=== PATIENT | female | born 1965 | race Caucasian/White ===

== ENCOUNTER 2016-10-05 09:05 | Outpatient (CLI) | payer BC ==
[2016-10-05 09:24] LABS: Hematocrit 42.1 % (30.3-42.9); Hemoglobin 14.3 gm/dl (10.1-14.3); Mean Corpuscular HGB Conc 34 % (30-34); Mean Corpuscular Hemoglobin 30 pg (28-32); Mean Corpuscular Volume 88 fl (79-97); Platelet Count 283 K/mm3 (140-440); Red Blood Count 4.81 M/mm3 (3.65-5.03); Red Cell Distribution Width 13.2 % (13.2-15.2); White Blood Count 5.1 K/mm3 (4.5-11.0)
[2016-10-05 09:46] LABS: Alanine Aminotransferase 30 units/L (7-56); Albumin 4.3 g/dL (3.9-5); Albumin/Globulin Ratio 1.4 %; Alkaline Phosphatase 39 units/L (35-129); Anion Gap 17 mmol/L; BUN/Creatinine Ratio 25.71; Blood Urea Nitrogen 18 mg/dL (7-17); Calcium 8.6 mg/dL (8.4-10.2); Carbon Dioxide 23 mmol/L (22-30); Chloride 103.7 mmol/L (98-107); Cholesterol 258 mg/dL (50-199); Glucose 99 mg/dL (65-100); HDL Cholesterol 44 mg/dL (40-59); LDL Cholesterol,Direct 185 mg/dL (50-130); Potassium 4.4 mmol/L (3.6-5.0); Sodium 139 mmol/L (137-145); Total Protein 7.3 g/dL (6.3-8.2); Triglycerides 149 mg/dL (2-149)
== END 2016-10-05 09:06 | disposition home or self-care (01) ==
LOC: LAB 09:05
PROVIDERS: ATTEND Internal Medicine
DX: E78.4 Other hyperlipidemia (principal); Z79.899 Other long term (current) drug therapy
CPT/HCPCS: 36415; 80053; 80061; 84443; 85027

== ENCOUNTER 2017-08-09 14:01 | Outpatient (CLI) | payer BC ==
--- NOTE | 2017-08-09 15:03 | XRay Report ---
RIGHT RIBS, 3 VIEWS: History: pain. Routine views of the rib cage demonstrate normal mineralization with no significant contour abnormalities, fractures or destructive lesions. PA view of the chest demonstrates no underlying cardiopulmonary abnormalities, fluid or pneumothorax. IMPRESSION: Unremarkable right rib series.
== END 2017-08-09 14:02 | disposition home or self-care (01) ==
LOC: XRAY 14:01
PROVIDERS: ATTEND Internal Medicine
DX: S29.9XXA Unspecified injury of thorax, initial encounter (principal); X58.XXXA Exposure to other specified factors, initial encounter; Y93.89 Activity, other specified; Y92.89 Other specified places as the place of occurrence of the external cause; Y99.8 Other external cause status

== ENCOUNTER 2017-10-24 14:57 | Outpatient (CLI) | payer BC ==
--- NOTE | 2017-10-24 15:46 | Mammography Report ---
BILATERAL MAMMOGRAM: FINDINGS: The breast tissue is heterogeneously dense, which could obscure detection of small masses (approximately 50%-75% glandular). No mass, distortion, suspicious calcification, or skin change is seen. No significant change when compared to her prior exam in November 2015. CAD was not captured. IMPRESSION: Negative mammogram. There is no mammographic evidence of malignancy. RECOMMENDATION: Follow-up per ACS guidelines. BI-RADS CATEGORY: 1 = Negative ACR BI-RADS MAMMOGRAPHIC CODES: 0 = Needs additional imaging evaluation; 1 = Negative; 2 = Benign; 3 = Probably benign; 4 = Suspicious; 5 = Malignant; 6 = Known biopsy-proven malignancy COMMENT: 1. Dense breast tissue, i.e., adenosis, fibrocystic changes, etc., may obscure an underlying neoplasm. 2. Approximately 10% of cancers are not detected with mammography. 3. A negative mammography report should not delay biopsy if a clinically suspicious mass is present. COMMENT: Patient follow-up letters are generated in [employer].
== END 2017-10-24 14:58 | disposition home or self-care (01) ==
LOC: SPVWC 14:57
PROVIDERS: ATTEND Internal Medicine
DX: Z12.31 Encounter for screening mammogram for malignant neoplasm of breast (principal)
CPT/HCPCS: 77067

== ENCOUNTER 2018-05-29 06:20 | Outpatient (CLI) | payer BC ==
[2018-05-29 08:35] LABS: Basophils % (Auto) 0.5 % (0.0-1.8); Eosinophils # (Auto) 0.1 K/mm3 (0.0-0.4); Eosinophils % (Auto) 1.8 % (0.0-4.3); Hematocrit 43.9 % (30.3-42.9); Hemoglobin 14.9 gm/dl (10.1-14.3); Lymphocytes # (Auto) 2.2 K/mm3 (1.2-5.4); Mean Corpuscular HGB Conc 34 % (30-34); Mean Corpuscular Volume 89 fl (79-97); Monocytes # (Auto) 0.4 K/mm3 (0.0-0.8); Monocytes % (Auto) 6.4 % (0.0-7.3); Platelet Count 305 K/mm3 (140-440); Red Blood Count 4.91 M/mm3 (3.65-5.03); Red Cell Distribution Width 12.4 % (13.2-15.2)
[2018-05-29 08:59] LABS: Alanine Aminotransferase 22 units/L (7-56); Albumin 4.6 g/dL (3.9-5); BUN/Creatinine Ratio 28; Blood Urea Nitrogen 14 mg/dL (7-17); Calcium 9.4 mg/dL (8.4-10.2); Hemolysis Index 12; LDL Cholesterol,Direct 185 mg/dL (50-130)
--- NOTE | 2018-05-29 09:00 | XRay Report ---
LEFT SHOULDER, 3 views: History: Left shoulder pain. Routine views demonstrate normal bony and soft tissue structures with normal joint alignment of the shoulder. IMPRESSION: Normal study.
[2018-05-29 09:32] LABS: Chol/HDL Ratio 5.92 %; HDL Cholesterol 40 mg/dL (40-59)
== END 2018-05-29 06:21 | disposition home or self-care (01) ==
LOC: XRAY 06:20
PROVIDERS: ATTEND Internal Medicine
DX: M25.512 Pain in left shoulder (principal)
CPT/HCPCS: 36415; 80053; 80061; 84443; 85025

== ENCOUNTER 2018-06-18 19:20 | Emergency (ER) | payer BC, OTHER ==
[2018-06-18 19:35] VITALS: BP 154/85
--- NOTE | 2018-06-18 20:01 | Emergency Department Report ---
ED Back Pain/Injury HPI - General Chief Complaint: Back Pain/Injury Stated Complaint: LOWER BACK PAIN Time Seen by Provider: 06/18/18 19:58 Source: patient Limitations: No Limitations - History of Present Illness Initial Comments: Pt is a 52 yo female who presents to the ED with right, lower back pain that began today. 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 The patient states she was wearing a support belt. She states she believes she "pulled a muscle." She describes the pain as a throbbing and spasm. The patient denies any numbness, tingling, weakness. She is able to ambulate without any difficulty. Pt has not tried any medication to relieve the pain but states she does have ibuprofen 800 mg at home. Complaint: back pain -: This afternoon Place: work Radiation: none Severity scale (0 -10): 5 Quality: other (throbbing/spasms) Consistency: constant Improves With: none Worsens With: movement Context: while lifting Associated Symptoms: denies other symptoms - Related Data Previous Rx's Medication Instructions Recorded Last Taken Type Tizanidine HCl [Zanaflex] 4 mg PO QHS #10 capsule 06/18/18 Unknown Rx Allergies Allergy/AdvReac Type Severity Reaction Status Date / Time No Known Allergies Allergy Unverified 10/05/16 09:05 ED Review of Systems ROS: Stated complaint: LOWER BACK PAIN Other details as noted in HPI Comment: All other systems reviewed and negative Musculoskeletal: back pain (right, lower) ED Back Pain Physical Exam - Exam General: Vital signs noted. No distress. Alert and acting appropriately. Pt has mild TTP over the right lumbar paraspinal region, no midline spinal tenderness, no steps offs, no deformities, FROM, no neuro deficits Back/Abdomen: No Sacroiliac Tenderness, No Flank Tenderness, No Straight Leg Raise Pain Neuro: Yes Normal Sensation, Yes Normal DTR's, Yes Normal Gait, No Motor Weakness ED Course Vital Signs 06/18/18 19:34 Temperature 97.7 F Pulse Rate 77 Respiratory 16 Rate Blood Pressure 154/85 [Right] O2 Sat by Pulse 98 Oximetry ED Medical Decision Making - Medical Decision Making Pt has right, lumbar paraspinal discomfort. no midline tenderness, FROM, able to ambulate without difficulty. Will give pt prescription for zanaflex to take at night, advised pt not to drive on medication. Pt states she already has ibuprofen 800 mg at home. Advised pt to return to the ED if new or worsening sx or if sx not improving. Critical care attestation.: If time is entered above; I have spent that time in minutes in the direct care of this critically ill patient, excluding procedure time. ED Disposition Clinical Impression: Lumbar strain Qualifiers: Encounter type: initial encounter Qualified Code(s): S39.012A - Strain of muscle, fascia and tendon of lower back, initial encounter Disposition: TO HOME OR SELFCARE Is pt being admited?: No Does the pt Need Aspirin: No Condition: Stable Instructions: Muscle Strain (ED) Additional Instructions: Follow up with PCP in the next few days. Return to ED if new or worsening sx. Only take zanaflex at night as needed for muscle spasms and do not use medication while driving. Prescriptions: Tizanidine HCl [Zanaflex] 4 mg PO QHS #10 capsule Referrals: SONA ESPINOZA MD [Primary Care Provider] - 3-5 Days Time of Disposition: 20:21 Print Language: TAJIK
== END 2018-06-18 20:30 | disposition home or self-care (01) ==
LOC: ED 19:20
DX: S39.012A Strain of muscle, fascia and tendon of lower back, initial encounter (principal); X50.0XXA Overexertion from strenuous movement or load, initial encounter; Y93.89 Activity, other specified; Y92.69 Other specified industrial and construction area as the place of occurrence of the external cause; Y99.8 Other external cause status
CPT/HCPCS: 99282

== ENCOUNTER 2018-06-26 09:50 | Outpatient (CLI) | payer BC ==
--- NOTE | 2018-06-26 19:44 | Magnetic Resonance Report ---
PROCEDURE: MR UE JOINT LT WO CON HISTORY: SHOULDER, PAIN FINDINGS: MRI of the left shoulder was performed using axial T2*gradient echo, coronal fat-saturated T2, thompson l T1, coronal fat-saturated proton density, sagittal fat saturated proton density images. These images demonstrate a partial undersurface tear of the anterior leading edge of the supraspinatu s tendon insertion, sagittal image 13. No full-thickness rotator cuff tear is seen. The infraspinatus teres minor and subscapularis muscles and tendons appear intact. The glenoid labrum appears intact. The biceps tendon appears intact. There is a curved, type II acromion. There is no subacromial spur. IMPRESSION: Partial thickness tear anterior leading edge of supraspinatus tendon insertion. No full-thickness rot ator cuff tear is seen This document is electronically signed by Sathya Mabry MD., June 26 2018 07:42:03 PM ET
== END 2018-06-26 09:51 | disposition home or self-care (01) ==
LOC: MRI 09:50
PROVIDERS: ATTEND Orthopaedic Surgery Sports Medicine
DX: S46.812A Strain of other muscles, fascia and tendons at shoulder and upper arm level, left arm, initial encounter (principal); X58.XXXA Exposure to other specified factors, initial encounter; Y93.89 Activity, other specified; Y92.89 Other specified places as the place of occurrence of the external cause; Y99.8 Other external cause status

== ENCOUNTER 2018-11-28 14:55 | Emergency (ER) | payer OTHER ==
--- NOTE | 2018-11-28 15:10 | Emergency Department Report ---
Blank Doc - Documentation Documentation: This is a 53-year-old female that presents with lower back pain during work. Denies any injuries. This initial assessment/diagnostic orders/clinical plan/treatment(s) is/are subject to change based on patient's health status, clinical progression and re- assessment by fellow clinical providers in the ED. Further treatment and workup at subsequent clinical providers discretion. Patient/guardians urged not to elope from the ED as their condition may be serious if not clinically assessed and managed. Initial orders include: 1- Patient sent to [facility] for further evaluation and treatment 2- xray
[2018-11-28 15:11] VITALS: BP 141/73
--- NOTE | 2018-11-28 15:42 | XRay Report ---
LUMBOSACRAL SPINE, 2 VIEWS INDICATION: low back pain. COMPARISON: None. IMPRESSION: There is mild levocurvature of the lumbar spine estimated at 10 degrees with apex near t he L2-3 level. No significant discogenic DJD or facet arthropathy. No acute osseous or soft tissue abnormality. Signer Name: Rafiq Montoya Jr, MD Signed: 11/28/2018 3:38 PM Workstation Name: [id number]
[2018-11-28] MEDS ORDERED: DELTASONE PO ONE (17:00)
[2018-11-28] MEDS ORDERED: NORCO 5/325 PO ONE (17:00)
--- NOTE | 2018-11-28 17:17 | Emergency Department Report ---
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 During the episode she felt a pop sensation to her back and reports severe pain that radiated around her waistband. Wound was a front of her abdomen continues to linger and a burning, aching fashion. Worse with various range of motion. Reports no fever, chills, sweats. No dysuria, no hematuria MD Complaint: back pain, back injury Similar Symptoms Previously: No Place: home Radiation: none Severity: moderate Quality: aching Consistency: constant Improves With: none Worsens With: none Associated Symptoms: denies: confusion, weakness, chest pain, numbness, incontinence, fever/chills, constipation, headaches, abdominal pain, loss of appetite, rash, seizure, shortness of breath, syncope - Related Data Previous Rx's Medication Instructions Recorded Last Taken Type Tizanidine HCl [Zanaflex] 4 mg PO QHS #10 capsule 06/18/18 Unknown Rx Allergies Allergy/AdvReac Type Severity Reaction Status Date / Time No Known Allergies Allergy Verified 11/28/18 15:01 ED Review of Systems ROS: Stated complaint: HURT BACK FROM WORK Other details as noted in HPI Comment: All other systems reviewed and negative ED Past Medical Hx - Past Medical History Previous Medical History?: No - Surgical History Past Surgical History?: No - Social History Smoking Status: Never Smoker Substance Use Type: None - Medications Home Medications: Home Medications Medication Instructions Recorded Confirmed Last Taken Type Tizanidine HCl [Zanaflex] 4 mg PO QHS #10 capsule 06/18/18 Unknown Rx ED Physical Exam - General Limitations: No Limitations General appearance: alert, in no apparent distress - Head Head exam: Present: atraumatic, normocephalic - Eye Eye exam: Present: normal appearance - ENT ENT exam: Present: mucous membranes moist - Neck Neck exam: Present: normal inspection - Respiratory Respiratory exam: Present: normal lung sounds bilaterally. Absent: respiratory distress - Cardiovascular Cardiovascular Exam: Present: regular rate, normal rhythm. Absent: systolic murmur, diastolic murmur, rubs, gallop - GI/Abdominal GI/Abdominal exam: Present: soft, normal bowel sounds - Extremities Exam Extremities exam: Present: normal inspection - Back Exam Back exam: Present: normal inspection, muscle spasm, paraspinal tenderness, other (negative. There is spine.). Absent: tenderness, CVA tenderness (R), CVA tenderness (L), vertebral tenderness - Neurological Exam Neurological exam: Present: alert, oriented X3, CN II-XII intact - Psychiatric Psychiatric exam: Present: normal affect, normal mood - Skin Skin exam: Present: warm, dry, intact, normal color. Absent: rash ED Course Vital Signs 11/28/18 11/28/18 15:09 17:07 Temperature 97.9 F Pulse Rate 89 Respiratory 18 18 Rate Blood Pressure 141/73 O2 Sat by Pulse 99 Oximetry ED Medical Decision Making - Medical Decision Making Fifth 3-year-old female status post lumbar injury. The patient x-ray that reveals some arthropathy in the possibility of a discrimination. Positive follow with orthopedic provider for an MRI. There is no tenderness of any cord syndrome. She is not having any urinary retention findings Streck concern for such a issue Critical care attestation.: If time is entered above; I have spent that time in minutes in the direct care of this critically ill patient, excluding procedure time. ED Disposition Clinical Impression: Lumbago Disposition: DC-01 TO HOME OR SELFCARE Is pt being admited?: No Does the pt Need Aspirin: No Condition: Stable Instructions: Lumbar Radiculopathy (ED), Back Pain (ED), Low Back Strain (ED) Referrals: MEHDI BUTTERFIELD MD [Referring] - 3-5 Days (Please follow with her ortho pedic physician for further evaluation of a lumbar go)
== END 2018-11-28 17:36 | disposition home or self-care (01) ==
LOC: ED 14:55
DX: M54.5 Low back pain (principal)
CPT/HCPCS: 72100; 99283; J7512

== ENCOUNTER 2019-04-29 06:54 | Outpatient (CLI) | payer BC ==
[2019-04-29 07:21] LABS: Hematocrit 40.8 % (30.3-42.9); Hemoglobin 13.8 gm/dl (10.1-14.3); Mean Corpuscular HGB Conc 34 % (30-34); Mean Corpuscular Volume 88 fl (79-97); Platelet Count 233 K/mm3 (140-440); Red Blood Count 4.62 M/mm3 (3.65-5.03); Red Cell Distribution Width 12.7 % (13.2-15.2)
[2019-04-29 07:26] LABS: Bilirubin,Urine NEG (Negative); Blood,Urine NEG (Negative); Color,Urine Straw (Yellow); Protein,Urine <15 mg/dL mg/dL (Negative); Urobilinogen,Urine < 2.0 mg/dL (<2.0); WBC,Urine < 1.0 /HPF (0.0-6.0)
[2019-04-29 07:46] LABS: Alanine Aminotransferase 24 units/L (7-56); Albumin 4.3 g/dL (3.9-5); BUN/Creatinine Ratio 18; Blood Urea Nitrogen 9 mg/dL (7-17); Calcium 9.1 mg/dL (8.4-10.2); Chol/HDL Ratio 2.88 %; HDL Cholesterol 52 mg/dL (40-59); Hemolysis Index 8; LDL Cholesterol,Direct 100 mg/dL (50-130)
== END 2019-04-29 06:55 | disposition home or self-care (01) ==
LOC: LAB 06:54
PROVIDERS: ATTEND Internal Medicine
DX: E78.5 Hyperlipidemia, unspecified (principal)
CPT/HCPCS: 36415; 80053; 80061; 81001; 84443; 85027

== ENCOUNTER 2019-12-09 07:03 | Outpatient (CLI) | payer BC ==
[2019-12-09 07:33] LABS: Mean Corpuscular HGB Conc 36 % (30-34); Mean Corpuscular Volume 89 fl (79-97); Platelet Count 282 K/mm3 (140-440); Red Blood Count 4.59 M/mm3 (3.65-5.03); Red Cell Distribution Width 12.8 % (13.2-15.2)
[2019-12-09 07:36] LABS: Hematocrit 40.8 % (30.3-42.9); Hemoglobin 14.7 gm/dl (10.1-14.3)
[2019-12-09 07:37] LABS: Bilirubin,Urine NEG (Negative); Blood,Urine NEG (Negative); Color,Urine Yellow (Yellow); Mucus,Urine FEW /HPF; Protein,Urine <15 mg/dL mg/dL (Negative); WBC,Urine < 1.0 /HPF (0.0-6.0)
[2019-12-09 07:58] LABS: Alanine Aminotransferase 46 units/L (7-56); Albumin 4.8 g/dL (3.9-5); Blood Urea Nitrogen 9 mg/dL (7-17); Calcium 9.6 mg/dL (8.4-10.2); Chol/HDL Ratio 5.17 %; HDL Cholesterol 51 mg/dL (40-59); Hemolysis Index 4; LDL Cholesterol,Direct 202 mg/dL (50-130)
[2019-12-09 08:23] LABS: BUN/Creatinine Ratio 13
== END 2019-12-09 07:04 | disposition home or self-care (01) ==
LOC: LAB 07:03
PROVIDERS: ATTEND Internal Medicine
DX: E03.9 Hypothyroidism, unspecified (principal); E78.5 Hyperlipidemia, unspecified
CPT/HCPCS: 36415; 80053; 80061; 81001; 84443; 85027

== ENCOUNTER 2020-01-21 11:18 | Outpatient (CLI) | payer BC ==
--- NOTE | 2020-01-22 09:07 | Mammography Report ---
DIGITAL SCREENING MAMMOGRAM WITH CAD, 01/21/2020 INDICATION: Routine screening mammography. TECHNIQUE: Digital bilateral 2D mammography was obtained in the craniocaudal and mediolateral obliq ue projections. This examination was interpreted with the benefit of Computer-Aided Detection analysi s. COMPARISON: 10/24/2017 FINDINGS: Breast Density: The breasts are heterogeneously dense, which may obscure small masses. There is no evidence of dominant mass, suspicious calcifications or architectural distortion in the r ight breast. There has been interval development of grouped microcalcifications in the left breast re troareolar region, middle depth. Calcifications span a distance of approximately 3.4 cm and approxima tely 4.3 cm deep to the nipple. Calcifications will need to be further evaluated with magnification v iews. IMPRESSION: Interval development of grouped microcalcifications in the left retroareolar breast. Follow up recommendation: Left magnification views Category 0: Incomplete. Needs additional imaging evaluation and/or prior mammograms for comparison. A "normal" or negative report should not discourage follow up or biopsy of a clinically significant f inding. A written summary of these findings will be mailed to the patient. The patient will be entered into a mammography reporting system which will generate a reminder letter for the patient's next appointmen t at the appropriate interval. The [employer] recommends yearly mammograms starting at age 40 and continuing as l randee as a woman is in good health. Breast MRI is recommended for women with an approximate 20-25% or greater lifetime risk of breast cancer, including women with a strong family history of breast or ova mark cancer or who have been treated for Hodgkin's disease. Signer Name: Dang Clemons MD Signed: 01/22/2020 9:02 AM Workstation Name: [id number]
== END 2020-01-21 11:19 | disposition home or self-care (01) ==
LOC: SPVWC 11:18
PROVIDERS: ATTEND Internal Medicine
DX: Z12.31 Encounter for screening mammogram for malignant neoplasm of breast (principal); N64.89 Other specified disorders of breast
CPT/HCPCS: 77067

== ENCOUNTER 2020-03-02 13:53 | Outpatient (CLI) | payer BC ==
--- NOTE | 2020-03-02 15:20 | XRay Report ---
CHEST 2 VIEWS INDICATION: ACUTE BRONCHITIS. COMPARISON: None FINDINGS: Support devices: None. Heart: Within normal limits. Lungs/pleura: No acute air space or interstitial disease. No pneumothorax. Additional findings: None. IMPRESSION: No acute findings. Signer Name: Rafiq Montoya Jr, MD Signed: 03/02/2020 3:15 PM Workstation Name: [id number]
== END 2020-03-02 13:54 | disposition home or self-care (01) ==
LOC: SPVIMAG 13:53
DX: J20.9 Acute bronchitis, unspecified (principal)
CPT/HCPCS: 71046

== ENCOUNTER 2020-03-09 13:12 | Outpatient (CLI) | payer BC ==
--- NOTE | 2020-03-09 14:11 | Mammography Report ---
DIGITAL DIAGNOSTIC MAMMOGRAM WITH CAD CONVENTIONAL, 03/09/2020 CLINICAL INFORMATION / INDICATION: Family history of left bloody nipple discharge, Abnormal screening mammogram TECHNIQUE: Digital left mammographic imaging was performed. Magnification views were obtained. This examination was interpreted with the benefit of Computer-aided Detection analysis. COMPARISON: Screening mammography 01/21/2020 and 10/24/2017 FINDINGS: Breast Density: The breasts are extremely dense, which lowers the sensitivity of mammography. In the central left breast, mid depth, just medial to the midline plain, the broad area of new groupe d microcalcifications is again seen. On magnification views these have a pleomorphic type of appearan ce. On lateral projections some of the calcifications may suggest mild layering but this is not unifo rm and not clearly benign. IMPRESSION: Calcifications remain indeterminate Follow up recommendation: Based on the appearance of these calcifications in the history of bloody ni pple discharge, stereotactic guided biopsy is recommended. BI-RADS Category 4: Suspicious for Malignancy. A "normal" or negative report should not discourage follow up or biopsy of a clinically significant f inding. A written summary of these findings will be mailed to the patient. The patient will be entered into a mammography reporting system which will generate a reminder letter for the patient's next appointmen t at the appropriate interval. According to the [employer], yearly mammograms are recommended starting at age 40 and continuing as long as a woman is in good health. Breast MRI is recommended for women with an kelsey roximately 20-25% or greater lifetime risk of breast cancer, including women with a strong family his tory of breast or ovarian cancer and women who have been treated for Hodgkin's disease. Signer Name: You Jimenez MD Signed: 03/09/2020 2:06 PM Workstation Name: [id number]
== END 2020-03-09 13:13 | disposition home or self-care (01) ==
LOC: SPVWC 13:12
DX: R92.8 Other abnormal and inconclusive findings on diagnostic imaging of breast (principal); N64.82 Hypoplasia of breast

== ENCOUNTER 2020-03-31 12:38 | Outpatient (CLI) | payer BC ==
--- NOTE | 2020-03-31 14:32 | Mammography Report ---
LEFT DIAGNOSTIC MAMMOGRAM INDICATION: Left breast calcifications. COMPARISON: 03/09/2017, 01/21/2020. FINDINGS: Left breast CC and LM projection mammograms were obtained. These document a biopsy marker l ocated slightly superior (2 cm) to a few residual calcifications in the left slightly medial central breast. A moderate size hematoma is noted at the biopsy site. IMPRESSION: Left breast mammographic images documenting the biopsy marker slightly superior (2 cm) to a few resid ual calcifications at the site of recent stereotactic biopsy. A moderate size hematoma is noted at th e biopsy site. BI-RADS Category 4: Suspicious for Malignancy. Signer Name: Roberto Burgos MD Signed: 03/31/2020 2:28 PM Workstation Name: [id number]
--- NOTE | 2020-03-31 14:46 | Mammography Report ---
PERCUTANEOUS STEREOTACTIC-GUIDED LEFT BREAST BIOPSY WITH MARKER PLACEMENT HISTORY: Left breast calcifications. CONSENT: Technique, risks and alternatives were discussed with the patient and informed written conse nt obtained. PROCEDURE: The patient was placed in the prone position on the Siemens biopsy table. The calcifications within t he left slightly medial central breast were targeted mammographically. Bread Wrapper Operator and stereo pair images w ere acquired to generate the computer-derived coordinates for targeting. The skin overlying the chose n biopsy site were cleansed with Betadine. The skin and superficial soft tissues were anesthetized w ith a small amount of buffered 1% lidocaine. The deeper soft tissues were anesthetized with buffered 1% lidocaine with epinephrine. A small dermatotomy was created through which the Atec biopsy device was placed. Pre and post fire st ereo pair images were acquired to confirm appropriate needle trajectory. Using vacuum assistance, mul tiple core specimen samples were acquired. A post procedure specimen radiograph confirmed calcificati ons within core specimen samples. A biopsy marker was deposited at the biopsy site. Manual pressure was applied at the biopsy site to achieve hemostasis. The incision margins were appro ximated with Steri-Strips. Postprocedure care instructions were administered in both verbal and writt en forms. The patient voiced understanding and departed the [facility] in stable, satisfactory con dition. IMPRESSION Technically successful stereotactic biopsy of left slightly medial central breast calcifications. A m oderate size hematoma formed at the biopsy site. NOTE: The patient reports left bloody nipple discharge (present for 3-4 months). Should these biopsy results be found to be benign, an MRI may be considered given the presence of bloody nipple discharge . She states she has an appointment with Dr. Huerta on 04/13/2020. Signer Name: Roberto Burgos MD Signed: 03/31/2020 2:42 PM Workstation Name: [id number]
== END 2020-03-31 12:39 | disposition home or self-care (01) ==
LOC: SPVWC 12:38
PROVIDERS: ATTEND Surgery
DX: R92.1 Mammographic calcification found on diagnostic imaging of breast (principal); R92.8 Other abnormal and inconclusive findings on diagnostic imaging of breast; Z79.899 Other long term (current) drug therapy
CPT/HCPCS: 19081; 77065; 88305; A4648

== ENCOUNTER 2020-04-21 13:38 | Outpatient (CLI) | payer BC ==
--- NOTE | 2020-04-22 09:50 | Magnetic Resonance Report ---
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 TECHNIQUE: Axial T1 and T2-weighted fat sat images were obtained precontrast. Gadolinium-based contra st was injected intravenously and serial axial T1 weighted images with fat saturation were obtained. 3-D MIP projections, kinetic analysis, and subtraction imaging were utilized to evaluate. A dedicated 8-channel breast coil was used for image acquisition. COMPARISON: [Biopsy from 03/31/2020. Diagnostic mammogram from 03/09/2020. FINDINGS: BREAST DENSITY: Extremely dense. BACKGROUND ENHANCEMENT: Moderate background enhancement within both breasts. RIGHT BREAST: No dominant mass or suspicious area of enhancement in the right breast. LEFT BREAST: Suspicious none mass enhancement is seen throughout the upper inner quadrant of the left breast with expected postbiopsy changes. Suspicious non mass enhancement is also seen along the uppe r outer left breast at the middle and posterior depths. No dominant mass is identified. No suspiciou s enhancement is seen elsewhere in the left breast. AXILLAE: Superiorly along the left axilla is a prominent lymph node measuring 1 cm in short axis dime nsion on image 379 of series 6 with cortical thickening. No other significant adenopathy. ADDITIONAL FINDINGS: Limited imaging of the thorax and upper abdomen demonstrates no focal abnormalit y. IMPRESSION: 1. Extensive abnormal nonmass enhancement throughout the left breast is consistent with DCIS. 2. Indeterminate left axillary node as above. 3. No evidence of malignancy in the right breast. Follow up recommendation: Surgical consult BI-RADS Category 6: Known Biopsy-Proven Malignancy. Signer Name: Oscar Nazario MD Signed: 04/22/2020 9:46 AM Workstation Name: [id number]
== END 2020-04-21 13:39 | disposition home or self-care (01) ==
LOC: SPVIMAG 13:38
PROVIDERS: ATTEND Surgery
DX: C50.112 Malignant neoplasm of central portion of left female breast (principal)
CPT/HCPCS: A9577; C8908; 77049

== ENCOUNTER 2020-05-12 09:17 | Outpatient (CLI) | payer BC ==
--- NOTE | 2020-05-12 16:35 | Ultrasound Report ---
ULTRASOUND-GUIDED LEFT AXILLARY NODE BIOPSY INDICATION: Recent diagnosis left breast DCIS, indeterminate left axillary lymph node on MR COMPARISON: MR breast 04/21/2020 CONSENT: Procedure was discussed at length in advance with the patient. Possible risks and benefits w ere discussed including the possibility of bleeding. Postbiopsy care was discussed. Opportunity for q uestions was provided. Patient is not on anticoagulant therapy and reports no pertinent allergies. PROCEDURE: Timeout was performed. The single enlarged node with borderline cortical thickening but pr ominent fatty hilum seen on MR was targeted sonographically. Using aseptic technique and under local anesthesia, with real-time sonographic guidance, the area of interest was biopsied. Multiple specimen s were obtained with a 14-gauge Bard biopsy device and sent to pathology for analysis. A metallic cli p was placed at the end of the procedure. Site was secured and the patient was sent for post biopsy m ammogram. Patient tolerated the procedure well and left the department in good condition. IMPRESSION: Successful ultrasound-guided left axillary node biopsy Signer Name: You Jimenez MD Signed: 05/12/2020 4:31 PM Workstation Name: [id number]
== END 2020-05-12 09:18 | disposition home or self-care (01) ==
LOC: SPVWC 09:17
PROVIDERS: ATTEND Surgery
DX: I89.8 Other specified noninfective disorders of lymphatic vessels and lymph nodes (principal); Z79.899 Other long term (current) drug therapy; C50.212 Malignant neoplasm of upper-inner quadrant of left female breast
CPT/HCPCS: 38505; 76942; 88305; 88342

== ENCOUNTER 2020-06-16 09:14 | Day surgery (SDC) | payer BC ==
[2020-06-15 10:48] LABS: Basophils % (Auto) 0.3 % (0.0-1.8); Eosinophils # (Auto) 0.1 K/mm3 (0.0-0.4); Eosinophils % (Auto) 0.8 % (0.0-4.3); Hematocrit 41.5 % (30.3-42.9); Hemoglobin 14.6 gm/dl (10.1-14.3); Lymphocytes % (Auto) 32.4 % (13.4-35.0); Mean Corpuscular HGB Conc 35 % (30-34); Mean Corpuscular Volume 88 fl (79-97); Monocytes # (Auto) 0.3 K/mm3 (0.0-0.8); Monocytes % (Auto) 5.3 % (0.0-7.3); Platelet Count 243 K/mm3 (140-440); Red Blood Count 4.72 M/mm3 (3.65-5.03); Red Cell Distribution Width 12.4 % (13.2-15.2)
[2020-06-15 11:02] LABS: Alanine Aminotransferase 30 units/L (7-56); Albumin 4.7 g/dL (3.9-5); Blood Urea Nitrogen 10 mg/dL (7-17); Calcium 9.2 mg/dL (8.4-10.2); Hemolysis Index 5
[2020-06-15 11:06] LABS: BUN/Creatinine Ratio 17
[~2020-06-16 09:14] MED LIST: ceFAZolin/Water 2 GM/20 ML 2 GM/20 ML SYRINGE IV NR
[2020-06-16] MEDS ORDERED: HYDROmorphone 1 MG/1 ML INJ IV PRN (09:20)
[2020-06-16] MEDS ORDERED: ONDANSETRON 4 MG/2 ML INJ IV PRN (09:20)
[2020-06-16] MEDS ORDERED: ACETAMINOPHEN 500 MG TAB PO SCH (09:21)
--- NOTE | 2020-06-16 09:54 | Anesthesia Day of Surgery ---
Anesthesia Day of Surgery - Day of Surgery Patient Examined: Yes Patient H&P Reviewed: Yes Patient is NPO: Yes
--- NOTE | 2020-06-16 09:54 | Anesthesia Consultation ---
Anesthesia Consult and Med Hx Date of service: 06/16/20 - Airway Anesthetic Teeth Evaluation: Good ROM Head & Neck: Adequate Mental/Hyoid Distance: Adequate Mallampati Class: Class II Intubation Access Assessment: Probably Good - Pre-Operative Health Status ASA Pre-Surgery Classification: ASA2 Proposed Anesthetic Plan: General - Pulmonary Hx Smoking: No Hx Respiratory Symptoms: No - Cardiovascular System Hx Hypertension: No Hx Heart Attack/AMI: No - Central Nervous System CVA: No - Endocrine Hx Renal Disease: No Hx Liver Disease: No Hx Insulin Dependent Diabetes: No Hx Non-Insulin Dependent Diabetes: No Hx Hypothyroidism: Yes - Other Systems Hx Cancer: Yes (breast ca) - Additional Comments Anesthesia Medical History Comments: No prior GA. No FHx anesthetic complications.
[2020-06-16] MEDS ORDERED: MIDAZOLAM 2 MG/2 ML INJ IV NR (10:00)
[2020-06-16] MEDS ORDERED: SCOPOLAMINE TRANSDERMAL PATCH 72 HR TD NR (10:00)
[2020-06-16] MEDS: LACTATED RINGERS 1,000 ML IV SCH ×2 (10:20→14:10)
[2020-06-16] MEDS ORDERED: HYDROmorphone 1 MG/1 ML INJ ONE (10:55)
[2020-06-16] MEDS ORDERED: LIDOCAINE MPF (2%) 20 MG/1 ML VIAL 5 ML ONE (10:55)
[2020-06-16] MEDS ORDERED: propofoL 200 MG/20 ML VIAL IV ONE (10:55)
[2020-06-16] MEDS ORDERED: BUPIVACAINE-EPINEPHRINE/PF 0.5%-1:200,000 (30 ML) VIAL INFILTRATI ONE ×3 (11:21→11:50)
[2020-06-16] MEDS ORDERED: dexAMETHasone 20 MG/5 ML VIAL ONE (11:30)
[2020-06-16] MEDS ORDERED: GLYCOPYRROLATE 0.4 MG/2 ML INJ ONE (11:30)
[2020-06-16] MEDS ORDERED: ONDANSETRON 4 MG/2 ML INJ ONE (11:30)
[2020-06-16] MEDS ORDERED: WATER FOR IRRIG STERILE 1,500 ML BOTTLE IR ONE (11:50)
[2020-06-16] MEDS ORDERED: KETOROLAC 30 MG/1 ML INJ ONE (12:29)
--- NOTE | 2020-06-16 13:12 | Operative Report ---
PREOPERATIVE DIAGNOSIS: Personal history of left breast cancer. POSTOPERATIVE DIAGNOSIS: Personal history of left breast cancer. PROCEDURE: Delay of left TRAM with ligation of the deep inferior epigastric blood vessels, left. SURGEON: Dr. Abdon Delgado. SEISMOGRAPH HELPER: None. ANESTHESIA: General LMA. DRAINS: None. COMPLICATIONS: None. SPECIMENS: None. ESTIMATED BLOOD LOSS: Less than 10 mL. COMPLICATIONS: None. INDICATIONS FOR PROCEDURE: The patient is a 54-year-old woman who has a known history of left-sided DCIS and is to undergo a left mastectomy by Dr. Huerta. The patient has opted to proceed with immediate breast reconstruction at the time of her upcoming mastectomy with a TRAM autologous reconstruction. In order to augment the circulation to the flap to procure as much tissue as safely possible, we discussed to delay procedure prior to her upcoming reconstruction to augment the blood supply. The nature and technical aspects of the procedure, typical recovery period and potential risks involved were discussed fully including but not limited to postop infection, bleeding, pronounced scar, hematoma, seroma formation, areas of paresthesias or numbness, delayed healing, failure to achieve anticipated goals, need for revision or future surgery. She was marked in the holding area in upright position. We again discussed the anticipated position of the postsurgical scar. PROCEDURE: The patient was brought to the operating room and placed on the operating table. She was induced with general laryngeal mask anesthesia prior to which IV antibiotics and pneumatic compression boots for DVT prophylaxis were utilized. DESCRIPTION OF PROCEDURE: The trunk was prepped and the patient was draped in the usual sterile fashion. Attention was first turned towards placement of local anesthetic comprised of 0.5% Marcaine with epinephrine solution into the operative field. An incision was made in the left groin spanning approximately 5 cm with a 15 blade scalpel and then carried through the subcutaneous tissue plane superficial Seth's fascia until the deep fascia was identified overlying the rectus muscle. Small incision was linearly made along the lateral border of the rectus muscle on the left side. The rectus muscle was reflected and dissection was carried out and a handheld Doppler was utilized to help identify the deep inferior epigastric blood vessel. Note that in the course of the dissection, the superficial epigastric blood vessels were cauterized. The deep inferior left epigastric artery and veins were then identified and doubly ligated with a 3-0 silk tie. Next, closure was then facilitated with reapproximation of the fascia with interrupted 2-0 Vicryl sutures. Seth's was reapproximated with interrupted 2-0 Vicryl suture and then the skin was reapproximated after irrigating the wound with copious amounts of saline solution with 3-0 Monocryl at the level of the deep dermis and then a running subcuticular 3-0 Monocryl stitch and then Dermabond skin glue. The patient tolerated the procedure well and was extubated and transferred to the recovery area in stable condition. JOB# [id number] /IBAN
[2020-06-16 15:19] VITALS: BP 121/62
--- NOTE | 2020-06-16 16:54 | Post Anesthesia Evaluation ---
- Post Anesthesia Evaluation Patient Participated: Yes Airway Patent: Yes Stable Respiratory Function: Yes Nausea/Vomiting: No Temp > 96.8F: Yes Pain Manageable: Yes Adequeate Hydration: Yes Anesthesia Complications: No
== END 2020-06-16 09:15 | disposition home or self-care (01) ==
LOC: OR 09:14
PROVIDERS: ATTEND Plastic Surgery
DX: Z51.89 Encounter for other specified aftercare (principal); G43.909 Migraine, unspecified, not intractable, without status migrainosus; E78.00 Pure hypercholesterolemia, unspecified; E03.9 Hypothyroidism, unspecified; Z85.3 Personal history of malignant neoplasm of breast; Z20.828 Contact with and (suspected) exposure to other viral communicable diseases; Z88.8 Allergy status to other drugs, medicaments and biological substances
CPT/HCPCS: 15600; 36415; 80053; 84703; 85025; J0690; J1100; J1170; J1885; J2250; J2405; J2704; J7120; U0003

== ENCOUNTER 2020-06-30 06:12 | Inpatient (IN) | payer BC ==
[~2020-06-30 06:12] MED LIST changes: +ACETAMINOPHEN 500 MG TAB PO SCH; +CELECOXIB 200 MG CAP PO NR; +GABAPENTIN 300 MG CAP PO NR; +LACTATED RINGERS 1,000 ML IV SCH; +MIDAZOLAM 2 MG/2 ML INJ IV NR; +SCOPOLAMINE TRANSDERMAL PATCH 72 HR TD NR; +fentaNYL 100 MCG/2 ML INJ IV PRN
[2020-06-30] MEDS ORDERED: BACTERIOSTATIC SODIUM CHLORIDE 0.9% 30 ML VIAL INFILTRATI ONE (06:55)
--- NOTE | 2020-06-30 06:57 | Anesthesia Consultation ---
Anesthesia Consult and Med Hx Date of service: 06/30/20 - Airway Anesthetic Teeth Evaluation: Good ROM Head & Neck: Adequate Mental/Hyoid Distance: Adequate Mallampati Class: Class II Intubation Access Assessment: Good - Pulmonary Exam CTA: Yes - Cardiac Exam Cardiac Exam: RRR - Pre-Operative Health Status ASA Pre-Surgery Classification: ASA2 Proposed Anesthetic Plan: General - Pulmonary Hx Respiratory Symptoms: No - Central Nervous System CVA: No Hx Psychiatric Problems: No - Endocrine Hx Insulin Dependent Diabetes: No Hx Non-Insulin Dependent Diabetes: No Hx Hypothyroidism: Yes - Other Systems Hx Cancer: Yes Hx Obesity: Yes
--- NOTE | 2020-06-30 06:58 | Anesthesia Day of Surgery ---
Anesthesia Day of Surgery - Day of Surgery Patient Examined: Yes Patient H&P Reviewed: Yes Patient is NPO: Yes
[2020-06-30] MEDS ORDERED: BUPIVACAINE/PF (0.5%) 5 MG/1 ML 30 ML VIAL INFILTRATI ONE (07:13)
[2020-06-30] MEDS ORDERED: dexAMETHasone 20 MG/5 ML VIAL ONE (07:14)
[2020-06-30] MEDS ORDERED: LIDOCAINE (1%) 10 MG/1 ML VIAL 20 ML MDV ONE (07:14)
[2020-06-30] MEDS ORDERED: SODIUM CHLORIDE 0.9% 500 ML 500 ML ONE (07:14)
[2020-06-30] MEDS ORDERED: METHYLENE BLUE 50 MG/10 ML AMP ONE (08:05)
[2020-06-30] MEDS ORDERED: ceFAZolin 1 GM VIAL ONE ×2 (08:06→16:28)
[2020-06-30] MEDS ORDERED: BACITRACIN 50,000 UNIT VIAL ONE (08:06)
[2020-06-30] MEDS ORDERED: SODIUM CHLORIDE P/F VIAL 10 ML 10 ML ONE (08:06)
[2020-06-30] MEDS ORDERED: GENTAMICIN 40 MG/ML VIAL 2 ML ONE (08:07)
[2020-06-30] MEDS ORDERED: SODIUM CHLORIDE P/F VIAL 10 ML 20 ML ONE (08:07)
[2020-06-30] MEDS ORDERED: ONDANSETRON 4 MG/2 ML INJ IV PRN ×2 (08:28→11:06)
[2020-06-30] MEDS ORDERED: fentaNYL 100 MCG/2 ML INJ IV PRN (08:28)
[2020-06-30] MEDS ORDERED: SODIUM CHLORIDE 0.9% P/F 10 ML VIAL INFILTRATI ONE (09:01)
[2020-06-30] MEDS ORDERED: METHYLENE BLUE 50 MG/10 ML AMP IRRIGATION ONE (09:01)
[2020-06-30] MEDS ORDERED: HYDROmorphone 2 MG TAB PO PRN (11:06)
[2020-06-30] MEDS ORDERED: oxyCODONE /ACETAMINOPHEN 5-325MG TAB PO PRN (11:06)
[2020-06-30] MEDS ORDERED: METOCLOPRAMIDE 10 MG TAB PO PRN (11:06)
--- NOTE | 2020-06-30 11:06 | Operative Report ---
Operative Report Operative Report: Operative Report: Date of Service: June 30, 2020 Preoperative diagnosis: Left breast cancer of the upper outer/upper inner/central quadrant Postoperative diagnosis: Same Procedure: Left total mastectomy with sentinel lymph node biopsy Surgeon: Kamilla Huerta M.D. Launch Commander [employer]: Tang Kapadia M.D. Anesthesia: Gen. Findings: Left breast clip present within left total mastectomy; x3 sentinel lymph nodes identified and negative for malignancy on frozen section of pathology Complications: None Drains: per Plastic Surgery Estimated blood loss: Less than 50 cc Disposition: Plastic surgery proceeded with TRAM flap reconstruction Indications for operative procedure: This is a 54-year-old lady with newly diagnosed Stage 0 left breast cancer of the upper outer/upper inner/central quadrant, ER/[place] positive; [id number] ER/[place] positive. Recommendations were to proceed with a left total mastectomy given extensive disease seen on breast MRI and patient wanted to proceed with a left mastectomy with immediate TRAM flap reconstruction. Breast MRI findings of extensive disease throughout the upper inner and upper outer quadrant; patient also with spontaneous left bloody nipple discharge since August 2019. She understands to role of possible adjuvant XRT pending final pathology and medical oncology will obtain Oncotype DX for evaluation for adjuvant chemotherapy if invasive carcinoma identified. She wished to proceed with the above procedure. Procedure in detail: Anesthesia placed left chest wall block. The patient was taken to the operating room and was placed supine. Gen. anesthesia was administered. The left nipple was injected with radioisotope and 1 cc of methylene blue. Bilateral chest and axillas were prepped and draped in the normal sterile operative fashion. Timeout was performed. Typical mastectomy incision marking was made. Attention was taken towards the left breast. A gamma probe was inserted into the axilla to identify the sentinel lymph node location with uptake noted. A skin incision was made with a 10 blade knife and dissection taken down to the subcutaneous tissues. First began raising of the superior flap to the level of the clavicle superiorly and posteriorly to the pectoralis muscle. Followed by raising of the medial flap to the level of the sternum and posteriorly to the pectoralis muscle. Followed by raising of the lateral flap to the level of the latissimus dorsi muscle and taken down posteriorly. The gamma probe was inserted into the axilla, the axillary fascia was opened and 3 SLNS were identified that were dissected free and sent to pathology. All SLNs sent to pathology with findings negative for malignancy on frozen section; first SLN with prior biopsy site changes present as well. Then proceeded with raising of the inferior flap to the level of the inframammary fold taken posterior to the pectoralis muscle. The mastectomy/breast was removed from the pectoralis muscle without incident. The specimen was appropriately marked and sent to radiology with findings of breast clip present and sent to pathology. Hemostasis was obtained. The chest wall cavity was irrigated. She tolerated surgery very well and Plastic Surgeon then proceeded with immediate TRAM flap.
[2020-06-30] MEDS ORDERED: MORPHINE 2 MG/1 ML INJ IV PRN (11:10)
[2020-06-30] MEDS ORDERED: SODIUM CHLORIDE 0.9% IRR 1,500 ML BOTTLE IR ONE (11:52)
[2020-06-30] MEDS ORDERED: ceFAZolin 1 GM VIAL IV ONE (11:52)
[2020-06-30] MEDS ORDERED: BACITRACIN 50,000 UNIT VIAL IR ONE (11:52)
[2020-06-30] MEDS ORDERED: GENTAMICIN 40 MG/ML VIAL 2 ML IV ONE (11:52)
[2020-06-30] MEDS ORDERED: MIDAZOLAM 2 MG/2 ML INJ ONE (13:07)
[2020-06-30] MEDS ORDERED: fentaNYL 100 MCG/2 ML INJ ONE (13:07)
[2020-06-30] MEDS ORDERED: HYDROmorphone 1 MG/1 ML INJ ONE ×2 (13:07)
[2020-06-30] MEDS ORDERED: ePHEDrine SULFATE 50 MG/1 ML INJ ONE (13:08)
[2020-06-30] MEDS ORDERED: propofoL 200 MG/20 ML VIAL IV ONE (13:08)
[2020-06-30] MEDS ORDERED: NALOXONE 0.4 MG/1 ML INJ IV PRN (14:04)
[2020-06-30] MEDS ORDERED: MORPHINE/NS 30 MG-30 ML PCA INJ IV SCH (15:00)
[2020-06-30] MEDS ORDERED: PHENYLEPHRINE 10 MG/1 ML INJ SDV ONE (15:30)
[2020-06-30] MEDS ORDERED: PHENYLEPHRINE/NS 1,000 MCG/10 ML SYRINGE (OR USE) IV ONE ×2 (15:30→16:24)
[2020-06-30] MEDS ORDERED: SODIUM CHLORIDE 0.9% 100 ML ONE (15:31)
[2020-06-30] MEDS ORDERED: LACTATED RINGERS 2,000 ML ONE (15:31)
[2020-06-30] MEDS ORDERED: NEOSTIGMINE 10MG/10 ML INJ MDV ONE (15:44)
[2020-06-30] MEDS ORDERED: GLYCOPYRROLATE 0.4 MG/2 ML INJ ONE (15:44)
[2020-06-30] MEDS ORDERED: ONDANSETRON 4 MG/2 ML INJ ONE (15:44)
--- NOTE | 2020-06-30 16:26 | Operative Report ---
PREOPERATIVE DIAGNOSIS: Personal history of breast cancer. POSTOPERATIVE DIAGNOSIS: Personal history of breast cancer. PROCEDURE: Immediate left breast reconstruction with pedicle TRAM flap. SURGEON: Dr. Abdon Delgado. TAMALE MACHINE FEEDER: ____ Steffi. ANESTHESIA: General endotracheal tube anesthesia. DRAINS: ANDRE x 4. SPECIMENS: None. COMPLICATIONS: None. ESTIMATED BLOOD LOSS: 200 mL. INDICATIONS: The patient is a 54-year-old woman with known left-sided breast cancer, who presented today for a left mastectomy with sentinel node biopsy as performed by Dr. Kamilla Huerta. The patient was aware of the various reconstructive options for breast reconstruction and ultimately decided she wished to proceed with autologous only reconstruction efforts and decided to proceed with a TRAM flap. A delay procedure with ligation of the deep inferior epigastric blood vessels had been performed prior to today's surgery to augment the blood supply from the superior based pedicle. The nature of the surgery, technical aspects, typical recovery period and potential risks involved were discussed fully including but not limited to postop bleeding, infection, pronounced scar, hematoma or seroma formation, areas of paresthesias, numbness or pain, which may be permanent, partial or complete loss of the flap, delayed healing at both the donor or recipient sites, positioning of the umbilicus off the midline. The asymmetry (expected) local breast deformity, failure achieve anticipated goals, need for revision or future surgery. We discussed the possible need for blood transfusion following the procedure if deemed necessary. The patient had donated 1 unit of autologous blood prior to surgery. DESCRIPTION OF PROCEDURE: The patient had already been marked and was anesthetized and lying supine. Dr. Huerta had completed the mastectomy on the left side as well as sentinel node biopsy. Flaps were evaluated and deemed of adequate thickness and viability to proceed with the planned reconstructive efforts. Attention was first turned towards harvesting an ipsilateral TRAM flap from the left lower abdomen. The flap had been marked out and was incised in an elliptical manner with a 10 blade scalpel, also an incision was made circumferentially around the umbilicus. Dissection with Metzenbaum scissors was used apple core the umbilicus down to the deep fascia, taking care to reserve as much blood supply to this area as possible. The incision was taken down universally along the flap to the deep fascia with electrocautery. The flap was then elevated from each side and the medial and lateral perforators were identified and preserved. Intraoperative sterile Doppler was utilized to confirm adequate aquaculture farmer blood supply to the flap. An incision was then made creating a cuff of fascia medially and laterally along the anterior rectus fascia with a 15 blade scalpel. The muscle was then dissected free of the rectus sheath under direct vision with the Metzenbaum scissor. Lateral perforating blood vessels were clamped with medium Ligaclips. The deep inferior epigastric system had already been tied off. The inferior portion just superior to the pubic insertion of the left rectus muscle was then divided in its entirety. The flap was then harvested along with muscle in its entirety from the rectus sheath in a cephalad manner, taking care to preserve the pedicle. Flap was then freed to the costal margin on the ipsilateral side. Meticulous hemostasis was achieved all the while. Next, an incision was made in the medial inframammary fold portion of the left breast and the flap was tunneled through this and oriented appropriately. There was excellent blood supply to the flap with brisk bright red bleeding from all skin edges including even zone 4. The flap was truncated by the removal of zone 4 and a portion of the adjacent zone as well as portion of zone 3. The flap was shaped and deepithelialized appropriately and some of the deep subcutaneous tissue was pexy'd to the pectoralis fascia with interrupted 2-0 Vicryl superiorly and laterally to create a nice breast mound. Two 10-Togolese flat ANDRE drains were placed into the left breast pocket and exited through separate inferolateral stab incisions and sewn in place with 2-0 silk. FloSeal was placed into the cavity for hemostatic purposes. I was quite pleased with the blood supply to the flap after inset and final inset was then performed at the skin level. After truncated and the flap as well as some of the [place] chest skin flaps with 3-0 Monocryl at the level of the deep dermis in an interrupted fashion and then a running subcuticular 4-0 Monocryl suture. Next, attention was turned towards closure of the rectus sheath. This was performed in 2 layers with [id number] interrupted #1 Surgilon sutures and then 2 separate running 0 Prolene sutures. There was no undue tension on the fascia and it was deemed unnecessary to use any mesh for support. This did bring the umbilicus off center somewhat to the left side as typically is the case. Note that the anterior abdominal wall had been dissected to the costal border with electrocautery. Next, attention was turned towards closure of the abdomen with placement of the patient in a semi-seated position with knees flexed. Seth's fascia was then sewn down in a 3 point manner to the deep fascia with interrupted 2-0 Vicryl sutures. Interrupted 3-0 Monocryl sutures were placed at the level of deep dermis of the skin and then a running subcuticular 3-0 Monocryl stitch was placed at the level of the skin. There was no undue tension on the flaps, which had nice appropriate bleeding from the skin edges. Prior to definitive closure, two additional flat ANDRE #10 drains were placed into the abdomen exiting out of the hip areas on each side and sewn in place with 2-0 silk sutures. The umbilicus was delivered through a triangulating incision in the midline and sewn in place with a deep pexy suture at the 6 o'clock position and interrupted 3-0 Monocryl sutures at the deep dermis in addition. Half buried 3-0 nylon sutures were placed at the level of the skin. The umbilicus appeared healthy and viable at the termination of the case. All sites appeared appropriate and the procedure went smoothly. Specialist care was taken to make sure that with folding of the ipsilateral pedicle that this had maintained appropriate blood supply without kinking of the pedicle as it was and after tunneling it. The patient tolerated the procedure well and was extubated and transferred to the recovery area in stable condition. JOB# [id number] /IBAN
[2020-06-30] MEDS ORDERED: ROCURONIUM 50 MG/5 ML INJ IV ONE (16:30)
[2020-06-30] MEDS ORDERED: LIDOCAINE MPF (2%) 20 MG/1 ML VIAL 5 ML ONE (16:30)
[2020-06-30] MEDS: LACTATED RINGERS 1,000 ML IV SCH (19:12)
[2020-06-30] MEDS: ceFAZolin/NS 1 GM/50 ML 1 GM/50 ML BAG IV SCH (21:58)
[2020-06-30] MEDS: DOCUSATE SODIUM 100 MG CAP PO SCH (22:49)
[2020-07-01] MEDS: oxyCODONE /ACETAMINOPHEN 5-325MG TAB PO PRN ×3 (00:41→19:21)
[2020-07-01] MEDS: LACTATED RINGERS 1,000 ML IV SCH ×3 (05:11→21:58)
[2020-07-01] MEDS: ceFAZolin/NS 1 GM/50 ML 1 GM/50 ML BAG IV SCH ×2 (05:41→21:57)
[2020-07-01 06:27] LABS: Hematocrit 23.2 % (30.3-42.9); Hemoglobin 8.1 gm/dl (10.1-14.3)
[2020-07-01] MEDS: DOCUSATE SODIUM 100 MG CAP PO SCH ×2 (07:40→21:58)
--- NOTE | 2020-07-01 08:16 | Mammography Report ---
BREAST SPECIMEN RADIOGRAPH HISTORY: Left lumpectomy for DCIS FINDINGS/IMPRESSION: The submitted radiograph or radiographs demonstrate(s) the presence of a biopsy marker with surroundi ng multiple calcifications. No localization wire is present. Signer Name: Dang Clemons MD Signed: 07/01/2020 8:11 AM Workstation Name: [id number]
--- NOTE | 2020-07-01 11:33 | Post Anesthesia Evaluation ---
- Post Anesthesia Evaluation Patient Participated: Yes Airway Patent: Yes Stable Respiratory Function: Yes Nausea/Vomiting: No Temp > 96.8F: Yes Pain Manageable: Yes Adequeate Hydration: Yes Anesthesia Complications: No Block Receding Appropriately: Yes Patient on Ventilator: No
--- NOTE | 2020-07-01 12:57 | Progress Note ---
Assessment and Plan This is a 54-year-old lady with newly diagnosed Stage 0 left breast cancer, postoperative day 1 left total mastectomy with SLNB followed by immediate TRAM flap reconstruction. 1. Physical exam left chest and abdomen incisions healing well with no signs of infection. No hematoma. ANDRE drains to bulb suction. 2. Up and out of bed to hallway today. 3. Will repeat H&H this evening and if stable will start patient on Lovenox. 4. ANDRE drain education prior to discharge home. 5. Continue with pain management; AUTO BODY ESTIMATOR d/c overnight. Subjective Date of service: 07/01/20 Principal diagnosis: Left breast cancer Interval history: This is a 54-year-old lady with newly diagnosed Stage 0 left breast cancer, postoperative day 1 left total mastectomy with SLNB followed by immediate TRAM flap reconstruction. Objective - Constitutional Vitals: Vital Signs - 12hr 07/01/20 07/01/20 07/01/20 04:30 05:42 06:00 Temperature 98.8 F Pulse Rate 101 H 88 Respiratory 18 20 Rate Blood Pressure Blood Pressure 91/49 101/55 [Right] O2 Sat by Pulse 95 Oximetry 07/01/20 08:55 Temperature 99.5 F Pulse Rate 92 H Respiratory 18 Rate Blood Pressure 90/52 Blood Pressure [Right] O2 Sat by Pulse 97 Oximetry General appearance: Present: no acute distress - EENT Eyes: PERRL, EOM intact ENT: hearing intact, clear oral mucosa, dentition normal Ears: bilateral: normal - Neck Neck: supple, normal ROM - Respiratory Respiratory effort: normal - Breasts Breasts: other (left TRAM reconstruction with skin well perfused; typical postoperative echhymosis; no hematoma; abdomen-incision c/d/i; ANDRE drains in place) - Cardiovascular Rhythm: regular Extremities: no ischemia, pulses intact, pulses symmetrical, No edema, normal temperature, normal color, Full ROM - Gastrointestinal General gastrointestinal: Present: other (incision healing well; c/d/i) - Genitourinary Female genitourinary: deferred - Integumentary Integumentary: clear, warm, dry - Musculoskeletal Musculoskeletal: strength equal bilaterally - Neurologic Neurologic: CNII-XII intact, moves all extremities - Psychiatric Psychiatric: appropriate mood/affect, intact judgment & insight, memory intact, cooperative - Labs CBC & Chem 7: 07/01/20 05:52 Labs: Abnormal lab results 07/01/20 Range/Units 05:52 Hgb 8.1 L (10.1-14.3) gm/dl Hct 23.2 L (30.3-42.9) % Medications & Allergies - Medications Allergies/Adverse Reactions: Allergies TEGADERM Adverse Reaction (Uncoded 06/23/20 16:41) "PULLS MY SKIN OFF" Home Medications: Home Medications Medication Instructions Recorded Confirmed Last Taken Type AtorvaSTATin [Lipitor] 40 mg PO QHS 06/14/20 06/23/20 06/29/20 History Levothyroxine [Synthroid] 25 mcg PO QAM 06/14/20 06/23/20 06/29/20 History Acetaminophen [Tylenol] 2 tab PO Q4H PRN 06/23/20 06/30/20 06/29/20 20:00 History Active Medications: Generic Name Dose Route Start Last Admin Trade Name Freq PRN Reason Stop Dose Admin Acetaminophen 650 mg 06/30/20 11:06 Acetaminophen 325 Mg Tab PO Q6H PRN Pain MILD(1-3)/Fever >100.5/SMITH Diphenhydramine HCl 25 mg 06/30/20 11:06 Diphenhydramine 25 Mg Cap PO Q8H PRN Itching Docusate Sodium 100 mg 06/30/20 22:00 07/01/20 07:40 Docusate Sodium 100 Mg Cap PO 100 mg BID JESSI Administration Hydromorphone HCl 2 mg 06/30/20 11:06 07/01/20 07:45 Hydromorphone 2 Mg Tab PO 2 mg Q6H PRN Administration Pain , Severe (7-10) Lactated Ringer's 1,000 mls @ 125 mls/hr 06/30/20 11:15 07/01/20 11:08 Lactated Ringers IV 125 mls/hr DIRECT JESSI Administration Cefazolin Sodium 1 gm in 50 mls @ 100 mls/hr 06/30/20 14:00 07/01/20 05:41 Ancef/Ns 1 Gm/50 Ml IV 100 mls/hr Q8H JESSI Administration Protocol Metoclopramide HCl 10 mg 06/30/20 11:06 Metoclopramide 10 Mg Tab PO Q6H PRN Nausea And Vomiting Morphine Sulfate 0 mg 06/30/20 15:00 06/30/20 16:47 Morphine/Ns 30 Mg-30 Ml Chicken Vaccinator Inj IV 1 mg DIRECT JESSI Administration Protocol Naloxone HCl 0.1 mg 06/30/20 14:04 Naloxone 0.4 Mg/1 Ml Inj IV Q2MIN PRN Res Rate </= 8 or 02 SAT < 92% Ondansetron HCl 4 mg 06/30/20 11:06 07/01/20 07:45 Ondansetron 4 Mg/2 Ml Inj IV 4 mg Q8H PRN Administration N/V unrelieved by Raisa Oxycodone/Acetaminophen 2 tab 07/01/20 00:29 07/01/20 05:42 Oxycodone /Acetaminophen 5-325mg Tab PO 2 tab Q6H PRN Administration Pain, Moderate (4-6) Sodium Chloride 10 ml 06/30/20 11:06 Sodium Chloride 0.9% 10 Ml Flush Syringe IV PRN PRN LINE FLUSH
[2020-07-01 16:42] LABS: Hematocrit 21.4 % (30.3-42.9); Hemoglobin 7.4 gm/dl (10.1-14.3)
[2020-07-01] MEDS ORDERED: SODIUM CHLORIDE 0.9% 500 ML 500 ML IV ONE (19:00)
[2020-07-02] MEDS: diphenhydrAMINE 25 MG CAP PO PRN ×2 (00:10→18:01)
[2020-07-02] MEDS: ACETAMINOPHEN 325 MG TAB PO PRN ×2 (00:10→14:14)
[2020-07-02] MEDS: ceFAZolin/NS 1 GM/50 ML 1 GM/50 ML BAG IV SCH ×2 (06:47→14:16)
[2020-07-02] MEDS: oxyCODONE /ACETAMINOPHEN 5-325MG TAB PO PRN (06:59)
[2020-07-02] MEDS: DOCUSATE SODIUM 100 MG CAP PO SCH (12:47)
[2020-07-02 12:59] LABS: Hematocrit 31.3 % (30.3-42.9); Hemoglobin 10.8 gm/dl (10.1-14.3)
[2020-07-02] MEDS ORDERED: HYDROcodone/ACETAMINOPHEN 7.5-325MG TAB PO PRN (14:41)
[2020-07-02 18:43] VITALS: BP 109/58
== END 2020-07-02 18:30 | disposition home or self-care (01) | DRG 581 ==
LOC: OR 06:12 → OB 11:06
PROVIDERS: ADMIT Plastic Surgery; ATTEND Surgery
PROC: 07B60ZX Excision of Left Axillary Lymphatic, Open Approach, Diagnostic (ICD-10-PCS; principal; 2020-06-30)
PROC: 0HTU0ZZ Resection of Left Breast, Open Approach (ICD-10-PCS; 2020-06-30)
PROC: 0KXL0Z6 Transfer Left Abdomen Muscle, Transverse Rectus Abdominis Myocutaneous Flap, Open Approach (ICD-10-PCS; 2020-06-30)
PROC: 30233N1 Transfusion of Nonautologous Red Blood Cells into Peripheral Vein, Percutaneous Approach (ICD-10-PCS; 2020-07-01)
DX: C50.812 Malignant neoplasm of overlapping sites of left female breast (principal)
CPT/HCPCS: 36415; 64450; 76098; 78800; 81025; 85014; 85018; 86850; 86900; 86901; 86920; 88305; 88307; 88309; 88331; 88333; G0378; A9541; J0690; J1100; J1170; J1580; J2250; J2270; J2370; J2405; J2704; J2710; J3010; J7040; J7120; Q9968; U0003

== ENCOUNTER 2020-10-12 09:15 | Outpatient (CLI) | payer BC ==
[2020-10-12 09:37] LABS: Hematocrit 40.2 % (30.3-42.9); Hemoglobin 13.6 gm/dl (10.1-14.3); Mean Corpuscular HGB Conc 34 % (30-34); Mean Corpuscular Volume 87 fl (79-97); Platelet Count 267 K/mm3 (140-440); Red Blood Count 4.62 M/mm3 (3.65-5.03); Red Cell Distribution Width 12.9 % (13.2-15.2)
[2020-10-12 10:00] LABS: Alanine Aminotransferase 43 units/L (7-56); Albumin 4.3 g/dL (3.9-5); Blood Urea Nitrogen 11 mg/dL (7-17); Calcium 9.6 mg/dL (8.4-10.2); Hemolysis Index 10
[2020-10-12 10:02] LABS: BUN/Creatinine Ratio 22
== END 2020-10-12 09:16 | disposition home or self-care (01) ==
LOC: LAB 09:15
PROVIDERS: ATTEND Internal Medicine Hematology & Oncology
DX: E03.9 Hypothyroidism, unspecified (principal); D05.12 Intraductal carcinoma in situ of left breast
CPT/HCPCS: 36415; 80053; 85027

== ENCOUNTER 2020-12-15 08:05 | Outpatient (CLI) | payer BC ==
[2020-12-15 08:42] LABS: Blood Urea Nitrogen 6 mg/dL (7-17)
--- NOTE | 2020-12-15 09:49 | Cat Scan Report ---
CT abdomen pelvis w con INDICATION / CLINICAL INFORMATION: ABDOMINAL PAIN X 1 WEEK OMNI 300 100 ML . TECHNIQUE: Axial CT images were obtained through the abdomen and pelvis after IV contrast. All CT sc ans at this location are performed using CT dose reduction for ALARA by means of automated exposure c ontrol. COMPARISON: None available. FINDINGS: LOWER CHEST: Postsurgical changes of the left breast. LIVER: No significant abnormality GALLBLADDER/BILIARY TREE: No significant abnormality PANCREAS: No significant abnormality SPLEEN: No significant abnormality ADRENALS: No significant abnormality KIDNEYS / URETER: No significant abnormality URINARY BLADDER: No significant abnormality REPRODUCTIVE ORGANS: No significant abnormality STOMACH / BOWEL: Stomach and small bowel are normal in caliber. No evidence of small bowel obstructio n or inflammation. Moderate colonic stool burden. No colonic wall thickening or pericolonic confirmat ory stranding. The appendix is normal in caliber. LYMPH NODES: No significant adenopathy. VASCULATURE: No significant abnormality. OTHER: No free air, free fluid, or focal fluid collection is identified. Postsurgical changes of the left rectus abdominous. SKELETAL SYSTEM: No acute osseous findings. IMPRESSION: 1. No acute abnormality of the abdomen or pelvis. 2. Moderate colonic stool burden, may reflect constipation. No evidence of colitis. 3. Other chronic and postsurgical findings as above. Signer Name: Silvio Hermosillo MD Signed: 12/15/2020 9:44 AM Workstation Name: [id number]
== END 2020-12-15 08:06 | disposition home or self-care (01) ==
LOC: CT 08:05
PROVIDERS: ATTEND Internal Medicine Gastroenterology
DX: R10.9 Unspecified abdominal pain (principal); R19.5 Other fecal abnormalities
CPT/HCPCS: 36415; 74177; 82565; 84520; Q9967

== ENCOUNTER 2021-01-07 06:24 | Day surgery (SDC) | payer BC ==
[2021-01-07] MEDS ORDERED: SODIUM CHLORIDE 0.9% 1000 ML 1,000 ML IV SCH (07:00)
--- NOTE | 2021-01-07 07:25 | Anesthesia Consultation ---
Anesthesia Consult and Med Hx Date of service: 01/07/21 - Airway Anesthetic Teeth Evaluation: Good ROM Head & Neck: Adequate Mental/Hyoid Distance: Adequate Mallampati Class: Class II Intubation Access Assessment: Good - Pulmonary Exam CTA: Yes - Cardiac Exam Cardiac Exam: No Murmur - Pre-Operative Health Status ASA Pre-Surgery Classification: ASA2 Proposed Anesthetic Plan: MAC - Pulmonary Hx Respiratory Symptoms: No - Central Nervous System CVA: No Hx Psychiatric Problems: No - Endocrine Hx Insulin Dependent Diabetes: No Hx Non-Insulin Dependent Diabetes: No Hx Hypothyroidism: Yes - Other Systems Hx Cancer: Yes Hx Obesity: Yes
--- NOTE | 2021-01-07 07:25 | Anesthesia Day of Surgery ---
Anesthesia Day of Surgery - Day of Surgery Patient Examined: Yes Patient H&P Reviewed: Yes Patient is NPO: Yes
[2021-01-07] MEDS ORDERED: LIDOCAINE MPF (2%) 20 MG/1 ML VIAL 5 ML ONE ×2 (07:46→08:00)
[2021-01-07] MEDS ORDERED: propofoL 200 MG/20 ML VIAL IV ONE ×2 (07:47)
--- NOTE | 2021-01-07 09:08 | Procedure Note ---
Date of procedure: 01/07/21 Pre-op diagnosis: Abdominal Pain/ R/O Peptic Ulcer disease/ H/O Breast Cancer/ Colon Polyp Sc Post-op diagnosis: other (No Peptic Ulcer Disease noted/ Minimal, [place]ia Esophagitis/ Mild to Moderate Erosive Esophagitis/ Gastritis/ No Colon Polyps/ No Diverticular Disease noted/ Minor, Internal Hemorrhoid) Procedure: EGD with Biopsy and Colonoscopy [place] [facility] [place]: ELVER CAMP Estimated blood loss: minimal Pathology: list Specimen disposition: to lab Condition: stable Disposition: same day (Treat with PPI,Fluconazole.prn Bentyl and OTC Probiotics. Avoid aspirin and NSAID for 5 days, otherwise resume home medication. F/U in 1 to 2 weeks ([phone]).)
--- NOTE | 2021-01-07 09:11 | Operative Report ---
DATE OF SURGERY: 01/07/2021 PROCEDURE: Colonoscopy. INDICATIONS: This is a 55-year-old female originally from [facility], who had an EGD done prior to the colonoscopy that showed presence of mild Grecia esophagitis, mild to moderate erosive esophagitis and gastritis. Colonoscopy was done because of her age being as part of colon polyp screening. She also has a prior history of cancer, namely breast cancer. Initial rectal examination was unremarkable. DESCRIPTION OF PROCEDURE: Instrument was passed through the rectum onto the cecum, which was identified with the ileocecal valve and the appendiceal orifice. Visualization was fair to good. Cecum was also visualized on the retroverted view. No additional pathology was noted. The scope was withdrawn to the hepatic flexure and reintroduced to the cecum. Again, no additional pathology was noted. The cecum, ascending colon, transverse colon, descending colon and sigmoid likewise showed normal mucosa. There was no evidence of any polyps, colitis or diverticular disease. Rectum showed some minor internal hemorrhoid on the retroverted view. There was no bleeding associated with the procedure. No complications associated with the procedure. ASSESSMENT: Colon polyp screening, no colon polyps, or diverticular disease noted. Minor internal hemorrhoid. PLAN: To treat the patient with PPI, fluconazole and probiotic as well as Bentyl because of the EGD findings of mild Grecia esophagitis and gastritis. The patient will be asked to avoid aspirin and aspirin-related products because of the biopsies done during the EGD and asked to follow up in the office in 1-2 weeks' time. Other than for aspirin and aspirin-related products, the patient will be asked to resume previous medications. Procedure was done in the GI lab with assistance of the GI lab team, which included the GI nurse, the earth science technical officer and with assistance of anesthesia. TID: [id number] RECEIPT: [id number] RUBÉN/FLAKO
--- NOTE | 2021-01-07 09:13 | Operative Report ---
DATE OF SURGERY: 01/07/2021 PROCEDURE PERFORMED: EGD with biopsy. INDICATIONS: This is a 55-year-old [place] female originally from [facility] who has had a prior history of breast cancer for which she has had surgery done. Lately, she has been having some abdominal pain and discomfort. EGD was done to make sure there was not any significant upper GI pathology present and to rule out for any peptic ulcer disease. DESCRIPTION OF PROCEDURE: Procedure was done after getting informed consent with MAC anesthesia. The instrument was passed through the hypopharynx into the esophagus, which showed some evidence of mild Grecia esophagitis. Photodocumentation and biopsy was done. Distal esophagus showed [id number] distal erosive esophagitis. Biopsy was done from the distal esophagus to assess for the severity of the erosive esophagitis with minimal bleeding. The stomach showed gastritis and the patent pylorus, the duodenum being normal in the first and second portion. There was no evidence of any duodenal or gastric ulcer present. Biopsy was done from the gastric antrum, gastric body and angular incisura to rule out for H. pylori and atrophic gastritis. There was minimal bleeding associated with the procedure. No complications associated with the procedure. ASSESSMENT: Abdominal pain, no peptic ulcer disease noted, mild Grecia esophagitis, mild to moderate erosive esophagitis and gastritis. PLAN: To treat the patient with PPI, p.r.n. dose of Bentyl, also to place the patient on fluconazole. Encouraged the patient to take probiotics. Also advised the patient to avoid aspirin and aspirin-related products for the next few days and follow up in the office in 1-2 weeks' time. A colonoscopy will also be done for further assessment as part of colon polyp screening. TID: [id number] RECEIPT: [id number] RUBÉN/OBED
[2021-01-07 09:58] VITALS: BP 116/76
--- NOTE | 2021-01-07 16:28 | Post Anesthesia Evaluation ---
- Post Anesthesia Evaluation Patient Participated: Yes Airway Patent: Yes Stable Respiratory Function: Yes Nausea/Vomiting: No Temp > 96.8F: Yes Pain Manageable: Yes Adequeate Hydration: Yes Anesthesia Complications: No Block Receding Appropriately: Not Applicable Patient on Ventilator: No
== END 2021-01-07 09:50 | disposition home or self-care (01) ==
LOC: GIO 06:24
DX: R10.9 Unspecified abdominal pain (principal); K57.30 Diverticulosis of large intestine without perforation or abscess without bleeding; K64.0 First degree hemorrhoids; K63.89 Other specified diseases of intestine; K21.00 Gastro-esophageal reflux disease with esophagitis, without bleeding; K29.50 Unspecified chronic gastritis without bleeding; K31.89 Other diseases of stomach and duodenum; B96.81 Helicobacter pylori [H. pylori] as the cause of diseases classified elsewhere; E03.9 Hypothyroidism, unspecified; E66.9 Obesity, unspecified; E78.00 Pure hypercholesterolemia, unspecified; Z85.3 Personal history of malignant neoplasm of breast; Z79.899 Other long term (current) drug therapy; Z98.890 Other specified postprocedural states; Z88.8 Allergy status to other drugs, medicaments and biological substances
CPT/HCPCS: 43239; 45378; 88305; 88342; J2704; J7030

== ENCOUNTER 2021-01-17 06:37 | Outpatient (CLI) | payer BC ==
[2021-01-17 07:28] LABS: Hematocrit 40.6 % (30.3-42.9); Hemoglobin 14.2 gm/dl (10.1-14.3); Mean Corpuscular HGB Conc 35 % (30-34); Mean Corpuscular Volume 89 fl (79-97); Platelet Count 264 K/mm3 (140-440); Red Blood Count 4.55 M/mm3 (3.65-5.03)
[2021-01-17 07:29] LABS: Alanine Aminotransferase 19 units/L (7-56); Albumin 4.6 g/dL (3.9-5); Blood Urea Nitrogen 9 mg/dL (7-17); Chol/HDL Ratio 2.84 %; HDL Cholesterol 51 mg/dL (40-59); Hemolysis Index 5; LDL Cholesterol,Direct 87 mg/dL (50-130)
[2021-01-17 07:42] LABS: BUN/Creatinine Ratio 15
== END 2021-01-17 06:38 | disposition home or self-care (01) ==
LOC: LAB 06:37
PROVIDERS: ATTEND Internal Medicine
DX: E03.9 Hypothyroidism, unspecified (principal); E78.5 Hyperlipidemia, unspecified; D05.12 Intraductal carcinoma in situ of left breast
CPT/HCPCS: 36415; 80053; 80061; 84443; 85027

== ENCOUNTER 2021-02-02 11:17 | Outpatient (CLI) | payer BC ==
--- NOTE | 2021-02-02 11:53 | Mammography Report ---
DIGITAL DIAGNOSTIC MAMMOGRAM WITH CAD , 02/02/2021 CLINICAL INFORMATION / INDICATION: The patient has a personal history of left breast cancer treated w ith mastectomy. She reports no new breast symptoms. TECHNIQUE: Digital right mammographic imaging was performed. This examination was interpreted with the benefit of Computer-aided Detection analysis. COMPARISON: Screening mammogram, 01/21/2020 FINDINGS: Breast Density: The breasts are extremely dense, which lowers the sensitivity of mammography. No dominant mass, suspicious calcifications or architectural distortion in the right breast. IMPRESSION: No mammographic evidence of malignancy. Follow up recommendation: Routine yearly BI-RADS Category 1: Negative. A "normal" or negative report should not discourage follow up or biopsy of a clinically significant f inding. A written summary of these findings will be mailed to the patient. The patient will be entered into a mammography reporting system which will generate a reminder letter for the patient's next appointmen t at the appropriate interval. According to the [employer], yearly mammograms are recommended starting at age 40 and continuing as long as a woman is in good health. Breast MRI is recommended for women with an kelsey roximately 20-25% or greater lifetime risk of breast cancer, including women with a strong family his tory of breast or ovarian cancer and women who have been treated for Hodgkin's disease. Signer Name: Marlene Ricketts MD Signed: 02/02/2021 11:44 AM Workstation Name: [id number]
== END 2021-02-02 11:18 | disposition home or self-care (01) ==
LOC: SPVWC 11:17
PROVIDERS: ATTEND Internal Medicine
DX: C50.412 Malignant neoplasm of upper-outer quadrant of left female breast (principal); Z85.3 Personal history of malignant neoplasm of breast

== ENCOUNTER 2021-06-29 10:31 | Outpatient (CLI) | payer BC ==
[2021-06-29 11:00] LABS: Bilirubin,Urine NEG (Negative); Blood,Urine NEG (Negative); Color,Urine Yellow (Yellow); Mucus,Urine FEW /HPF; Protein,Urine <15 mg/dL mg/dL (Negative); Urobilinogen,Urine < 2.0 mg/dL (<2.0)
[2021-06-29 11:04] LABS: Hemoglobin 14.2 gm/dl (10.1-14.3); Mean Corpuscular HGB Conc 33 % (30-34); Mean Corpuscular Volume 89 fl (79-97); Platelet Count 281 K/mm3 (140-440); Red Blood Count 4.84 M/mm3 (3.65-5.03); Red Cell Distribution Width 12.5 % (13.2-15.2)
[2021-06-29 11:12] LABS: Alanine Aminotransferase 25 units/L (7-56); Albumin 4.8 g/dL (3.9-5); BUN/Creatinine Ratio 20; Blood Urea Nitrogen 12 mg/dL (7-17); Calcium 10.3 mg/dL (8.4-10.2); Chol/HDL Ratio 3.25 %; HDL Cholesterol 54 mg/dL (40-59); Hemolysis Index 7; LDL Cholesterol,Direct 103 mg/dL (50-130)
== END 2021-06-29 10:32 | disposition home or self-care (01) ==
LOC: LAB 10:31
PROVIDERS: ATTEND Internal Medicine
DX: E78.5 Hyperlipidemia, unspecified (principal); E03.9 Hypothyroidism, unspecified; Z76.89 Persons encountering health services in other specified circumstances
CPT/HCPCS: 36415; 80053; 80061; 81001; 84443; 85027

== ENCOUNTER 2021-12-27 07:38 | Outpatient (CLI) | payer BC ==
[2021-12-27 08:41] LABS: Blood Urea Nitrogen 11 mg/dL (7-17)
--- NOTE | 2021-12-27 11:06 | Cat Scan Report ---
CT ABDOMEN AND PELVIS WITHOUT CONTRAST INDICATION / CLINICAL INFORMATION: R10.9 UNSPECIFIED ABDOMINAL PAIN. TECHNIQUE: Axial CT images were obtained through the abdomen and pelvis without IV contrast. All CT scans at [facility] location are performed using CT dose reduction for ALARA by means of automated exposure control. COMPARISON: 12/15/2020. FINDINGS: LOWER CHEST: No significant abnormality. LIVER: No significant abnormality. GALLBLADDER: No significant abnormality. BILE DUCTS: No significant abnormality. PANCREAS: No significant abnormality. SPLEEN: No significant abnormality. ADRENALS: No significant abnormality. RIGHT KIDNEY and URETER: No significant abnormality. LEFT KIDNEY and URETER: No significant abnormality. STOMACH and SMALL BOWEL: No significant abnormality. COLON: No significant abnormality. APPENDIX: No significant abnormality. PERITONEUM: No free fluid. No free air. No fluid collection. LYMPH NODES: No significant adenopathy. AORTA and ARTERIES: No significant abnormality. IVC and VEINS: No significant abnormality. URINARY BLADDER: No significant abnormality. REPRODUCTIVE ORGANS: No significant abnormality. ADDITIONAL FINDINGS: Extensive postoperative changes identified just to left of midline of the mid an d lower anterior abdominal wall. No obvious leak or collection is identified from the administered or al contrast. SKELETAL SYSTEM: No significant abnormality. IMPRESSION: No acute intra-abdominal abnormality or significant change from 12/15/2020. Signer Name: Shravan Flores MD Signed: 12/27/2021 11:01 AM Workstation Name: [id number]
== END 2021-12-27 07:39 | disposition home or self-care (01) ==
LOC: CT 07:38
PROVIDERS: ATTEND Plastic Surgery
DX: R10.9 Unspecified abdominal pain (principal)
CPT/HCPCS: 36415; 74176; 82565; 84520